=== PATIENT | male | born 1975 | race Caucasian/White ===

== ENCOUNTER 2018-04-13 09:56 | Emergency (ER) | payer OTHER ==
[~2018-04-13] VITALS: Ht 175.3 cm; Wt 77.1 kg
[~2018-04-13 09:56] MED LIST: ALEVE220 M1 PO; CELEXA20 MG PO; GLUCOPHAGE500 MG PO; NORCO 5-325 TA1 EACH PO; SEROQUEL 100 M100 M1 PO; VALIUM5 MG PO
[2018-04-13 10:13] LABS: HEMATOCRIT 40.7 % (42.0-52.0); HEMOGLOBIN 14.4 gm/dL (14.0-18.0); MCHC 35.3 g/dL (28.0-37.0); MCV 90.5 fL (80.0-100.0); PLATELET COUNT 245 thou/uL (150-400)
[2018-04-13 10:24] LABS: ANION GAP 9 mmol/L (7-16); BUN 14 mg/dL (7-18); CHLORIDE 103 mmol/L (98-107); CO2 28 mmol/L (21-32); CREATININE 0.6 mg/dL (0.7-1.3); GLUCOSE 156 mg/dL (74-106); SODIUM 140 mmol/L (136-145)
[2018-04-13 10:30] LABS: SALICYLATE < 2.8 mg/dL (2.8-20.0); SGOT 73 U/L (15-37); SGPT 114 U/L (30-65); TOTAL BILIRUBIN 0.9 mg/dL (<0.1-1.0); TOTAL PROTEIN 7.5 g/dL (6.4-8.2)
[2018-04-13 10:47] LABS: URINE BILIRUBIN NEGATIVE (Negative); URINE BLOOD NEGATIVE (Negative); URINE CLARITY CLEAR; URINE COLOR YELLOW; URINE GLUCOSE-RANDOM* NEGATIVE (Negative); URINE KETONES NEGATIVE (Negative); URINE LEUKOCYTES TRACE (Negative); URINE NITRITE NEGATIVE (Negative); URINE PROTEIN (DIPSTICK) NEGATIVE (Negative); URINE SPECIFIC GRAVITY <= 1.005 (1.005-1.035); URINE UROBILINOGEN 0.2 E.U./dl (0.2-1.0)
[2018-04-13 10:47] LABS: ABSOLUTE NEUTROPHILS 1.9 thou/uL (1.4-8.2); ATYPICAL LYMPHS 4 %
[2018-04-13 10:55] LABS: AMP/METHAMP Negative (Negative); BARBITURATES Negative (Negative); BENZODIAZEPINES POSITIVE (Negative); COCAINE Negative (Negative); METHADONE Negative (Negative); OPIATES Negative (Negative); PCP Negative (Negative)
[2018-04-14] MEDS ORDERED: ATIVAN1 MG PO (22:10)
[2018-04-14 22:35] VITALS: BP 113/75
== END 2018-04-13 22:35 | disposition home or self-care (01) ==
LOC: ER 09:56
PROVIDERS: Physician Assistant
DX: F10.10 Alcohol abuse, uncomplicated (principal); F32.9 Major depressive disorder, single episode, unspecified; F12.10 Cannabis abuse, uncomplicated; R45.851 Suicidal ideations; G89.29 Other chronic pain; I10 Essential (primary) hypertension; E11.9 Type 2 diabetes mellitus without complications; F43.10 Post-traumatic stress disorder, unspecified